=== PATIENT | female | born 1995 | race African-American/Black ===

== ENCOUNTER 2017-02-26 | Inpatient (IN) ==
[2017-02-26] MEDS: LACTATED RINGERS 1,000 ML IV SCH ×4 (00:33→12:21)
[2017-02-26] MEDS ORDERED: ACETAMINOPHEN 325 MG TABLET PO PRN ×2 (00:35→14:53)
[2017-02-26] MEDS ORDERED: BUTORPHANOL 2 MG/ML VIAL IV PRN (00:35)
[2017-02-26] MEDS ORDERED: MEPERIDINE 50 MG/1 ML VIAL IV PRN (00:35)
[2017-02-26] MEDS ORDERED: ONDANSETRON 4 MG/2 ML VIAL IV PRN ×2 (00:35→14:53)
[2017-02-26 00:54] LABS: Basophils % 0.3 % (0.0-0.8); Eosinophils # 0.1 10*3/uL (0.0-0.87); Eosinophils % 0.7 % (0.00-10.9); Hematocrit 36.7 VOL% (35.7-47.0); Hemoglobin 12.1 GM/DL (12.0-16.0); Immature Granulocytes % 0.3 %; Immature Granulocytes Absolute 0.03 #; Lymphocytes % 22.5 % (21.3-54.2); Mean Corpuscular Hemoglobin 29 PG (27-34); Mean Corpuscular Volume 88.9 FL (87-102); Monocytes % 11.2 % (1.7-12.7); Neutrophils # 5.9 10*3/uL (1.4-7.4); Platelet Count 221 T/CUMM (130-400); Red Blood Count 4.13 MC/CUMM (3.8-5.5); Red Cell Distribution Width 13.8 % (9.3-17.3); White Blood Count 9.1 T/CUMM (4-12)
[2017-02-26] MEDS ORDERED: OXYTOCIN/LR 20 UNIT/1,000 ML BAG IV SCH (01:00)
[2017-02-26] MEDS: AMPICILLIN INJ 2,000 MG in SODIUM CHLORIDE 0.9% 100 ML IV SCH ×2 (01:02→07:45)
[2017-02-26 01:15] LABS: Albumin 3.4 G/DL (3.4-5.0); Bilirubin,Total 0.5 MG/DL (0.2-1.0); Osmolality,Calculated 273.5 MOS/KG (273-304); Potassium 4.2 MMOL/L (3.5-5.1); Total Protein 6.6 G/DL (6.4-8.3)
[2017-02-26] MEDS ORDERED: ePHEDrine 50 MG/ML AMP IV PRN (09:24)
[2017-02-26] MEDS ORDERED: PROMETHAZINE 25 MG/1 ML VIAL IM ONE (09:24)
[2017-02-26] MEDS ORDERED: diphenhydrAMINE 50 MG/1 ML VIAL IV PRN (09:24)
[2017-02-26] MEDS ORDERED: FAMOTIDINE 20 MG/2 ML VIAL IV ONE (09:24)
[2017-02-26] MEDS ORDERED: CITRIC ACID/SODIUM CITRATE 30 ML UDCUP PO ONE (09:24)
[2017-02-26] MEDS ORDERED: hydrOXYzine HCL 25 MG/1 ML VIAL IM PRN (09:24)
[2017-02-26] MEDS ORDERED: fentaNYL 2 MCG/ROPIV 0.2% EPID 150 ML EPIDURAL SCH (09:24)
--- NOTE | 2017-02-26 13:47 | OB/GYN History & Physical ---
History of Present Illness Chief complaint: Induction of labor History of present illness: Ms. Santana is a 21 year old female At 39 weeks gestation who presents for induction of labor at Home Medications Medication Instructions Recorded Confirmed Type Vits #90/Iron Fum/FA 1 each PO BEDTIME 09/28/16 02/26/17 History [ Formula Tablet] Allergies Allergy/AdvReac Type Severity Reaction Status Date / Time No Known Allergies Allergy Verified 09/28/16 11:17 12 point system: reviewed and no additional remarkable complaints except as stated Medical,Surgical,& Family Hx - Family History Family History: Denies;: Family Anesthesia Reaction, Family Cancer, Family Diabetes, Family Heart Disease, Family Hematology, Family Hypertension, Family Psychiatric Problems, Family Stroke, Additional Family History - Social History Smoking Status: Never smoker Frequency of Alcohol Use: None Type of Drug Use: None Exam STAPLE SIDE LASTER - Constitutional Vitals: Vital Signs Temp Pulse Resp BP Pulse Ox 02/26/17 12:00 97.8 F 103 H 18 113/51 99 02/26/17 07:22 97.0 F L 02/26/17 04:00 97.1 F L 67 18 109/65 02/26/17 00:34 97.6 F 71 20 130/86 100 General appearance: mild distress - Antepartum / Post Antepartum Exam Cervix - Dilatation: 8 cm Effacement: 90% Station: -2 Rupture: Patient artificially rupture membranes with clear fluid Presentation: Vertex Heart Rate: 140s 150s no D cells Dwight: Contractions every 2-3 minutes Abdomen obstetrics: Present: bowel sounds normal - Head Head exam: Present: normocephalic - Respiratory Respiratory exam: Present: clear to auscultation bilaterally - Cardiovascular Cardiovascular exam: Present: regular rate and rhythm - GI/Abdominal GI/Abdominal exam: Present: normal bowel sounds, soft - Extremities Exam Extremities exam: Present: normal inspection - Back Exam Back exam: Present: normal inspection - Neurological Exam Neurological exam: Present: alert, oriented X3 - Psychiatric Psychiatric exam: Present: normal affect, normal mood - Skin Skin exam: Present: normal color, warm Assessment and Plan (1) 39 weeks gestation of Status: Acute Assessment and plan: Expected vaginal delivery with Pitocin induction Current Visit: Yes Results - Labs CBC & BMP: 02/26/17 00:44 02/26/17 00:44
[2017-02-26] MEDS ORDERED: miSOPROStol 200 MCG TABLET ONE (13:53)
[2017-02-26 13:58] LABS: Apearance,Urine CLEAR (Clear); Bilirubin,Urine Negative (Negative); Blood, Urine Negative (Negative); Glucose,Urine (UA) Negative (Negative); Ketones,Urine 80 mg/dL (Negative); Mucus,Urine Occasional /LPF (Occasional); Nitrite,Urine Negative (Negative); Protein,Urine Negative; RBC,Urine 2 /HPF (0-4); Urine Color Yellow (Yellow); Urine Specific Gravity 1.017 (1.001-1.035); WBC,Urine 1 /HPF (0-6)
[2017-02-26] MEDS ORDERED: BISACODYL 10 MG SUPP RECTAL PRN (14:53)
[2017-02-26] MEDS ORDERED: DIPH/TET/ACEL PERT BOOSTER VACCINE 0.5 ML VIAL IM ONE (14:53)
[2017-02-26] MEDS ORDERED: WITCH HAZEL PADS 100/JAR TOP PRN (14:53)
[2017-02-26] MEDS ORDERED: RHO(D) IMMUNE GLOBULIN 300 MCG SYRINGE IM ONE (14:53)
[2017-02-26] MEDS ORDERED: BENZOCAINE 20%/MENTHOL 0.5% SPRAY 56 GM CAN TOP PRN (14:53)
[2017-02-26] MEDS ORDERED: IBUPROFEN 800 MG TABLET PO PRN (14:53)
[2017-02-26] MEDS ORDERED: OXYTOCIN/LR 20 UNIT/1,000 ML BAG IV ONE (14:53)
[2017-02-26] MEDS ORDERED: MEASLES/MUMPS/RUBELLA VACCINE 0.5 ML VIAL SUBCUT ONE (14:53)
[2017-02-26] MEDS ORDERED: LANOLIN 50% CREAM 0.3 OZ TUBE TOP PRN (14:53)
[2017-02-26] MEDS ORDERED: oxyCODONE/ACETAMINOPHEN 5-325 MG TABLET PO PRN (14:53)
[2017-02-26] MEDS ORDERED: HYDROCORTISONE 2.5% RECTAL CREAM 30 GM TUBE TOP PRN (14:53)
--- NOTE | 2017-02-26 14:55 | Operative Note ---
Date of procedure: 02/26/17 Procedure Preformed: Patient delivered a liveborn male infant via spontaneous vaginal delivery. Baby 's head was delivered in the OA position. The baby's nose mouth bulb suctioned the perineum. Anterior posterior shoulders followed by the body was delivered with ease. Status post internal after" was doubly clamped and cut. Cord blood was sent. Placenta was delivered spontaneously and intact with three-vessel cord. The uterus was massaged and was found to confirm a well contracted. The patient sustained second-degree laceration which was repaired with 2-0 chromic. Birthweight []. Apgars 8 9. Baby and mother stable. And the procedure all sponge lap counts correct 2. Surgeon / Physician: Jenny Arguelles Post-op diagnosis: same Findings: Liveborn male infant Specimens: none sent Estimated blood loss: other (75 mL) Anesthesia: epidural Disposition: floor
--- NOTE | 2017-02-26 14:56 | Discharge Summary ---
<Jenny Arguelles - Last Filed: 02/26/17 14:55> Hospital Course - Hospital Course Hospital Course: This is a 21-year-old female admitted at 39 weeks gestation for induction of labor. Patient subsequently delivered a liveborn male infant via spontaneous vaginal delivery. Hospital course unremarkable by day #2 she was ready for discharge The pt was ready for discharge on PPD#2 Diagnosis - Discharge Diagnosis (1) 39 weeks gestation of Status: Acute Specialty Discharge - Follow Up or Referrals Follow up with: Jenny Arguelles MD [Physician] - 1 Month Discharge Plan - Discharge Data Disposition: Disch To Home/Self Care Condition at Discharge: Stable Discharge Diet: advance to your usual diet Activity: resume usual activities as tolerated (Pelvic rest) Hygiene: may shower Weight Bearing at Discharge: weight bear as tolerated Driving: no restrictions Contact your physician if you experience:: fever over 101, Difficulty voiding, Redness or swelling, Nausea/Vomiting, Shortness of breath, Bleeding, pain uncontrolled by pain medications - Discharge Medications New oxyCODONE/ACETAMINOPHEN 5-325 [Percocet 5-325] 1 tablet PO Q6H PRN #14 tablet PRN Reason: Abdominal Pain No Action Vits #90/Iron Fum/FA [ Formula Tablet] 1 each PO BEDTIME - Follow Up or Referral Follow Up: Jenny Arguelles MD [Physician] - 1 Month - Forms/Instructions Instructions: Perineal Care (DC), Vaginal Delivery (DC), Postoperative Bleeding (DC), Sitz Bath (DC) Exam - Constitutional Vitals: Period Temp Pulse Resp BP Sys/Guerin Pulse Ox Last 24 Hr 97.3 F-99.1 F 72-107 18-20 107-121/53-77 98-100 DS: Provider Date of admission: 02/26/17 00:35 Primary care physician: . No PCP Attending physician on admission: Jenny Arguelles MD Consults: 02/26/17 00:35 Consult to Anesthesiology [CONS] Routine Consulting Provider: Reason for Anesthesiology: Epidural Consult Comment: Epidural for pain managment 02/26/17 14:53 Consult to Gas Well Pumper [CONS] Routine Consult Gas Well Pumper: Breast Feeding Discharging clinician: Jenny Arguelles MD <Kelin Lemus - Last Filed: 02/28/17 11:27> Diagnosis - Discharge Diagnosis (1) 39 weeks gestation of Status: Acute Discharge Plan - Discharge Data Condition at Discharge: Stable Discharge Diet: advance to your usual diet Activity: resume usual activities as tolerated Hygiene: may shower Weight Bearing at Discharge: weight bear as tolerated Driving: no restrictions Contact your physician if you experience:: fever over 101, Difficulty voiding, Redness or swelling, Nausea/Vomiting, Shortness of breath, Bleeding, pain uncontrolled by pain medications DS: Provider Expected date of discharge: 02/28/17
[2017-02-26] MEDS: DOCUSATE SODIUM 100 MG CAPSULE PO SCH (22:00)
[2017-02-27 06:57] LABS: Basophils % 0.3 % (0.0-0.8); Eosinophils % 0.3 % (0.00-10.9); Hematocrit 35.1 VOL% (35.7-47.0); Hemoglobin 11.5 GM/DL (12.0-16.0); Immature Granulocytes % 0.5 %; Immature Granulocytes Absolute 0.08 #; Lymphocytes # 2.2 10*3/uL (1.4-4.0); Lymphocytes % 14.5 % (21.3-54.2); Mean Corpuscular HGB Conc 32.8 GM/DL (32-36); Mean Corpuscular Hemoglobin 29 PG (27-34); Mean Corpuscular Volume 88.6 FL (87-102); Mean Platelet Volume 11.4 FL (9.6-12.0); Monocytes # 1.5 10*3/uL (0.11-0.8); Neutrophils # 11.3 10*3/uL (1.4-7.4); Neutrophils % 74.4 % (38.7-73.9); Platelet Count 194 T/CUMM (130-400); Red Blood Count 3.96 MC/CUMM (3.8-5.5); Red Cell Distribution Width 13.7 % (9.3-17.3); White Blood Count 15.2 T/CUMM (4-12)
[2017-02-27] MEDS: oxyCODONE/ACETAMINOPHEN 5-325 MG TABLET PO PRN ×3 (06:59→21:50)
--- NOTE | 2017-02-27 07:28 | Anesthesia Post-Op ---
Anesthesia Post OP - Post Ansesthetic Evaluation Patient seen in post op: Yes Resp: within normal limits CV: within normal limits Mental: within normal limits Temp: within normal limits [id number]: within normal limits Nausea and Vomiting: within normal limits Pain: within normal limits
[2017-02-27] MEDS: DOCUSATE SODIUM 100 MG CAPSULE PO SCH ×2 (09:00→20:05)
--- NOTE | 2017-02-27 10:12 | OB/GYN Progress Note ---
Assessment and Plan (1) 39 weeks gestation of Status: Acute Assessment and plan: PPD#1 s/p SAVD . Continue routine care. Anticipate discharge tomorrow. Current Visit: Yes ERGONOMIST - PN: Subj Interval history: The patient has no complaints this morning her pain and bleeding are under control. Exam ERGONOMIST - Constitutional Vitals: Vital Signs Temp Pulse Resp BP Pulse Ox 02/27/17 07:42 97.2 F L 61 18 111/71 100 02/27/17 04:00 97.8 F 65 18 139/76 100 02/27/17 00:00 97.1 F L 80 18 122/82 99 02/26/17 20:00 97.7 F 76 18 117/66 99 02/26/17 17:59 97.7 F 58 L 20 139/88 99 02/26/17 16:00 97.8 F 02/26/17 12:00 97.8 F 103 H 18 113/51 99 General appearance: normal weight, no acute distress - Respiratory Respiratory exam: Absent: accessory muscle use - Cardiovascular Cardiovascular exam: Present: regular rate and rhythm - GI/Abdominal GI/Abdominal exam: Present: soft. Absent: guarding, rebound - Extremities Exam Extremities exam: Absent: calf tenderness - Neurological Exam Neurological exam: Present: alert, oriented X3 - Psychiatric Psychiatric exam: Present: normal affect, normal mood Results - Labs CBC & BMP: 02/27/17 06:35 02/26/17 00:44
[2017-02-28 08:26] VITALS: BP 108/62
[2017-02-28] MEDS: DOCUSATE SODIUM 100 MG CAPSULE PO SCH (08:54)
--- NOTE | 2017-02-28 11:26 | OB/GYN Progress Note ---
Assessment and Plan (1) 39 weeks gestation of Status: Acute Assessment and plan: PPD#2 s/p SAVD . Continue routine care. Anticipate discharge today with routine f/u. Current Visit: Yes CREPE SOLE SCOURER - PN: Subj Interval history: The patient has no complaints this morning. She is ready to go home. Her bleeding pain and bleeding are under control. Exam CREPE SOLE SCOURER - Constitutional Vitals: Vital Signs Temp Pulse Resp BP Pulse Ox 02/28/17 08:00 98.9 F 81 18 108/62 02/28/17 04:00 99.1 F 72 18 110/53 100 02/28/17 00:00 97.3 F L 81 18 107/66 100 02/27/17 20:00 97.3 F L 74 121/72 100 02/27/17 15:48 97.6 F 75 20 120/77 99 02/27/17 11:48 98 F 107 H 20 110/71 98 General appearance: normal weight, no acute distress - Respiratory Respiratory exam: Absent: accessory muscle use - Cardiovascular Cardiovascular exam: Present: regular rate and rhythm - GI/Abdominal GI/Abdominal exam: Present: soft. Absent: guarding, tenderness, rebound - Extremities Exam Extremities exam: Absent: calf tenderness - Neurological Exam Neurological exam: Present: alert, oriented X3 - Psychiatric Psychiatric exam: Present: normal affect, normal mood Results - Labs CBC & BMP: 02/27/17 06:35 02/26/17 00:44
== END 2017-02-28 12:55 | disposition home or self-care (01) | DRG 560 ==
LOC: N.LD → N.OB 16:49
PROVIDERS: ADMIT Obstetrics & Gynecology; ATTEND Obstetrics & Gynecology